=== PATIENT | male | born 1965 | race African-American/Black ===

== ENCOUNTER 2019-05-04 08:28 | Emergency (ER) | payer OTHER ==
--- NOTE | 2019-05-04 08:45 | ED ---
Psychiatric Complaint - HPI Summary HPI Summary: The patient is a 53 y/o M arriving by ambulance to [facility] from [facility] [place] with a chief complaint of SI this morning. He states that he wants to see his mother, who is , and he also thinks that he is "irritable to others and myself." He is depressed and angry at this time. He has hx of suicidal attempt with cutting, hanging, and overdosing, but he does not have a plan now. He is in the [facility] for nursing home use of cocaine and marijuana, but he has been sober for about the last week now. He denies HI at this time. Hx of HTN. - History Of Current Complaint Time Seen by Provider: 05/04/19 08:30 Hx Obtained From: Patient Onset/Duration: Gradual Onset, Lasting Hours, Still Present Timing: Constant Severity Initially: Severe Severity Currently: Severe Character: Depressed, Angry Aggravating Factor(s): Other - wants to be with his mother Alleviating Factor(s): Nothing Has Suicidal: Reports: Thoughts. Denies: With A Plan Has Homicidal: Denies: Thoughts - Allergies/Home Medications Allergies/Adverse Reactions: Allergies Allergy/AdvReac Type Severity Reaction Status Date / Time olanzapine [From Zyprexa] Allergy Unknown Verified 05/04/19 09:11 Reaction Details Home Medications: Home Medications Acetaminophen TAB* [Tylenol TAB*] 650 mg PO Q4H PRN 05/04/19 [History Confirmed 05/04/19] Ibuprofen TAB* [Motrin TAB* 400 MG] 400 mg PO Q4H PRN 05/04/19 [History Confirmed 05/04/19] Melatonin 5 - 20 mg PO BEDTIME PRN 05/04/19 [History Confirmed 05/04/19] Multivitamin [Multivitamins] 1 cap PO DAILY 05/04/19 [History Confirmed 05/04/19 ] Topiramate TAB(*) [Topamax 25 MG tab] 25 mg PO BID 05/04/19 [History Confirmed 05/04/19] amLODIPine TAB* [Norvasc 5 mg TAB*] 5 mg PO DAILY 05/04/19 [History Confirmed ] buPROPion SR TAB* [Wellbutrin SR TAB*] 100 mg PO BID 05/04/19 [History Confirmed 05/04/19] busPIRone TAB* [Buspar TAB *] 15 mg PO BID 05/04/19 [History Confirmed 05/04/19] hydrOXYzine HCL TAB* [Atarax TAB 50 MG *] 50 mg PO QID PRN 05/04/19 [History Confirmed 05/04/19] PMH/Surg Hx/FS Hx/Imm Hx Endocrine/Hematology History: Denies: Hx Diabetes Cardiovascular History: Reports: Hx Hypertension - Surgical History Surgical History: None Surgery Procedure, Year, and Place: none - Family History Known Family History: Positive: Hypertension - Social History Occupation: Unemployed Alcohol Use: pt has been sober for one week but has EtOH use in past Hx Substance Use: Yes Substance Use Type: Reports: Cocaine, Marijuana Substance Use Comment - Amount & Last Used: one week ago Review of Systems Negative: Fever, Chills Negative: Erythema Negative: Sore Throat Negative: Chest Pain Negative: Shortness Of Breath, Cough Negative: Abdominal Pain, Vomiting, Nausea Negative: dysuria, hematuria Negative: Myalgia, Edema Negative: Rash Neurological: Other - NEGATIVE: dizziness Psychological: Other - POSITIVE: SI without plan, depressed, angry; NEGATIVE: HI All Other Systems Reviewed And Are Negative: Yes Physical Exam - Summary Physical Exam Summary: Constitutional: Well-developed, Well-nourished, Alert. (-) Distressed. Skin: Warm, Dry HENT: Normocephalic; Atraumatic Eyes: Conjunctiva normal Neck: Musculoskeletal ROM normal neck. (-) JVD, (-) Stridor, (-) Tracheal deviation Cardio: Rhythm regular, rate normal, Heart sounds normal; Intact distal pulses; The pedal pulses are 2+ and symmetric. Radial pulses are 2+ and symmetric. (-) Murmur Pulmonary/Chest wall: Effort normal. (-) Respiratory distress, (-) Wheezes, (-) Rales Abd: Soft, (-) tenderness, (-) Distension, (-) Guarding, (-) Rebound Musculoskeletal: (-) Edema Lymph: (-) Cervical adenopathy Neuro: Alert, Oriented x3 Psych: Mood and affect Normal, Pressure speech Triage Information Reviewed: Yes Vital Signs Reviewed: Yes Diagnostics - Laboratory Result Diagrams: 05/04/19 09:15 05/04/19 09:15 Lab Statement: Any lab studies that have been ordered have been reviewed, and results considered in the medical decision making process. Re-Evaluation - Re-Evaluation First Eval Re-Evaluation Time: 09:00 Change: Improved Comment: The patient has been uncompliant with nursing staff, but after speaking with him, he states that he will try to be more compliant and allow treatment at this time. Second Eval Re-Evaluation Time: 11:10 Change: Worse Comment: I entered the patient's room after speaking to social work, the patient was to be referred to department of social science analyst emeterio. The patient tells me he is still intends killing himself. He does have risk factors including prior attempts. At this point I reached out to Dr. Lawrence, the psychiatrist to evaluate the patient. The patient's extremely confrontational, yelling expletives and jokes in the hallway. He diverts attention and blame from 1 provider to security software engineer to mental health director of quality and time. He questions the removal of his mental health watches being racially motivated. Mental health watches resumed, as psychiatrist evaluation has been requested. Course/Dx - Course Course Of Treatment: The patient is a 53 y/o M arriving by ambulance to [facility] from [facility] with a chief complaint of SI this morning without a plan. Hx of suicidal attempt with cutting, hanging, and overdosing. 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 He denies HI at this time. Upon physical exam, the patient exhibits pressured speech. In the ED course, the patient was administered Ativan and Haldol. Blood work reveals creatinine of 1.20. UA is negative. Toxicology report reveals cocaine. He is diagnosed with cocaine abuse. He will be discharged home after being cleared by Dr. Rod in the ED. He agrees with this plan. - Differential Dx/Clinical Impression Provider Diagnosis: Cocaine abuse - Physician Notifications Discussed Care Of Patient With: Justin Lawrence Instructed by Provider To: Other - Patient is clear for discharge. Discharge - Sign-Out/Discharge Documenting (check all that apply): Patient Departure - Patient will be discharged home. Patient Received Moderate/Deep Sedation with Procedure: No - Discharge Plan Condition: Stable Disposition: HOME Patient Education Materials: Stress (ED), Depression (ED) Referrals: [facility] [place] PHYSICIAN REFERRAL [Outside] Additional Instructions: RETURN TO THE EMERGENCY DEPARTMENT FOR ANY NEW OR WORSENING SYMPTOMS. - Billing Disposition and Condition Condition: STABLE Disposition: Home - Attestation Statements Document Initiated by Scribe: Yes Documenting Scribe: Kasey Mejia Provider For Whom Raeibe is Documenting (Include Credential): Dr. Richard Marsh MD Scribe Attestation: Kasey Jones scribed for Dr. Richard Marsh MD on 05/04/19 at 2009. Status of Scribe Document: Ready
[2019-05-04] MEDS ORDERED: Haloperidol TAB* 5 MG PO ONE (09:08)
[2019-05-04] MEDS ORDERED: LORazepam TAB(*) 1 MG PO ONE (09:08)
[2019-05-04 09:11] LABS: Urine Appearance Clear; Urine Bilirubin Negative (Negative); Urine Blood Negative (Negative); Urine Color Yellow; Urine Glucose Negative (Negative); Urine Ketones Negative (Negative); Urine Nitrite Negative (Negative); Urine Protein Negative (Negative); Urine Specific Gravity 1.017 (1.010-1.030); Urine Urobilinogen Negative (Negative)
[2019-05-04 09:23] LABS: Hematocrit 44 % (42-52); Mean Corpuscular HGB Conc 34 g/dL (31-36); Mean Corpuscular Hemoglobin 30 pg (27-31); Mean Corpuscular Volume 88 fL (80-94); Platelet Count 205 10^3/uL (150-450); Red Blood Count 4.97 10^6 /uL (4.18-5.48); Red Cell Distribution Width 15 % (10-15); White Blood Count 4.4 10^3/uL (3.5-10.8)
[2019-05-04 09:24] LABS: ABS Eosinophils 0.1 10^3/ul (0-0.6); ABS Lymphocytes 1.3 10^3/ul (1.0-4.8); ABS Monocytes 0.3 10^3/ul (0-0.8); ABS Neutrophils 2.7 10^3/ul (1.5-7.7); Eosinophil % 1.8 %; Lymphocyte % 29.5 %; Nucleated Red Blood Cells % 0.2
[2019-05-04 09:40] LABS: Urine Benzodiazepine Screen None Detected (None Detect); Urine Opiates Screen None Detected (None Detect)
[2019-05-04 09:41] LABS: ALT 14 U/L (7-52); AST 17 U/L (13-39); Albumin 3.9 g/dL (3.2-5.2); Albumin/Globulin Ratio 1.3 (1-3); Alkaline Phosphatase 48 U/L (34-104); Anion Gap 9 mmol/L (2-11); BUN/Creatinine Ratio 16.7 (8-20); Blood Urea Nitrogen 20 mg/dL (6-24); CO2 Carbon Dioxide 22 mmol/L (22-32); Calcium 9.1 mg/dL (8.6-10.3); Chloride 106 mmol/L (101-111); EGFR African American 76.1 (>60); EGFR Non-African American 62.9 (>60); Globulin 2.9 g/dL (2-4); Glucose 97 mg/dL (70-100); Potassium 3.7 mmol/L (3.5-5.0); Sodium 137 mmol/L (135-145); Total Protein 6.8 g/dL (6.4-8.9)
[2019-05-04 10:22] LABS: Alcohol < 10 mg/dL (<10); Salicylate < 2.50 mg/dL (<30)
[2019-05-04 10:34] LABS: TSH (Thyroid Stimulating Horm) 1.37 mcIU/mL (0.34-5.60)
[2019-05-04 10:38] LABS: Acetaminophen 2 mcg/mL
[2019-05-04 12:53] VITALS: BP 00/00
== END 2019-05-04 12:52 | disposition home or self-care (01) ==
LOC: ED 08:28
DX: F14.10 Cocaine abuse, uncomplicated (principal); I10 Essential (primary) hypertension; Z91.5 Personal history of self-harm
CPT/HCPCS: 36415; 80053; 80307; 80320; 80329; 81003; 84443; 85025; 99285; A9270-GY; G0480